=== PATIENT | male | born 1960 | race Caucasian/White ===

== ENCOUNTER 2022-03-15 08:02 | Emergency (ER) | payer SELFPAY ==
[2022-03-15 08:29] VITALS: BP 133/90; PULSE 86; RESP 18; TEMP 36.4; O2SAT 97; BMI 31.3
--- NOTE | 2022-03-15 08:51 | XR_ITS ---
Patient: EMMA MEJIA Facility:?[facility] Patient ID:?[id number] Site Patient ID:?[id number]. Site :?[id number] Study:?XRay-Knee Right 2 view-03/15/2022 9:10:56 AM Ordering Physician:Matt Rodrigues Final Report: INDICATION: Pain and swelling TECHNIQUE: Two-view right knee COMPARISON: None FINDINGS: Two views of the right knee reveal no fracture, malalignment/dislocation, acute osseous abnormality or joint effusion. There is narrowing of the medial compartment with osteophytic spurring noted along the articular surface of the patella. IMPRESSION: Degenerative changes without acute abnormality noted as discussed above. Dictated by Morgan Brady MD @ 03/15/2022 9:21:26 AM Signed by:?Morgan Brady MD @03/15/2022 9:21:26 AM (Electronic Signature)
--- NOTE | 2022-03-15 09:29 | ED_ITS ---
HPI - General Adult General Chief complaint: Extremity Pain/Injury, Lower Stated complaint: RT knee pain and swelling Time Seen by Provider: 03/15/22 08:17 Source: patient Mode of arrival: ambulatory Limitations: no limitations History of Present Illness HPI narrative: 61-year-old male coming in today complaining of knee pain. He states that he had a pimple over the anterior knee just below the patella that he popped a couple days ago and since then his knee has slowly been getting more painful. He denies any systemic symptoms such as fevers chills, nausea, or vomiting. He does not feel lightheaded or dizzy. walking Or moving the knee is painful lying still feels better. he denies pain in any other joint. Related Data Previous Rx's Medication Instructions Recorded cephalexin 500 mg capsule 500 mg PO QID 7 days #28 caps 03/15/22 Allergies Allergy/AdvReac Type Severity Reaction Status Date / Time No Known Drug Allergies Allergy Verified 03/15/22 08:33 Review of Systems Status of ROS: Reports: 10 or more systems reviewed and unremarkable except as noted in History and below [facility] Social History Smoking Status: Unknown if ever smoked Do you use any of these nicotine containing products: None How often do you have a drink containing alcohol: never AUDIT-C Alcohol total score: 0 Non-prescribed substance use: denies use Exam Narrative: Exam Narrative: Well-nourished well-developed patient in no acute distress. Alert and oriented. Answers questions appropriately. Mood and affect are appropriate. Thoughts are goal oriented and rational. No tangential or magical thinking noted. Patient speaks in full sentences without needing to catch their breath. Patient does not appear ill or toxic. HEENT: Normocephalic atraumatic. Pupils are equally round reactive to light. Extraocular muscles are intact. Conjunctivae are moist without any icterus noted. Extremities: Right knee is swollen and warm to touch. Posterior knee is normal, no heat or swelling noted there. Small scab just distal to the patella, healing appropriately. The knee is not red, just slightly pink. Skin: Otherwise Well perfused. Const: Vital Signs, click to edit/add: Vital Signs - 24 hr 03/15/22 08:29 Temperature 97.6 F Pulse Rate [Right Pulse Oximeter] 86 Respiratory Rate 18 Blood Pressure [Ri ght Upper Arm] 133/90 H Pulse Oximetry 97 Oxygen Delivery Me thod Room Air Course Course Hospital Course: certainly a concern for a septic joint versus cellulitis . Given the amount of swelling over the knee, difficult to ascertain whether this is a joint effusion verses subcutaneous swelling. We discussed risks and benefit of tapping the joint. We discussed the increased risk of infection and pain. Patient wished to proceed. Knee was cleaned in the usual sterile manner, lidocaine introduced into the skin and needle was easily placed inside the knee joint From a lateral approach. Unfortunately there was no fluid extracted. Given that we were unsuccessful in doing a joint aspiration we opted to proceed with a x-ray of the knee which did not show a joint effusion. Vital Signs Vital signs: Initial Vital Signs Temperature 97.6 F 03/15/22 08:29 Temperature Source Temporal Artery Scan 03/15/22 08:29 Pulse Rate 86 03/15/22 08:29 Respiratory Rate 18 03/15/22 08:29 Blood Pressure 133/90 H 03/15/22 08:29 Blood Pressure Mean 104 03/15/22 08:29 Blood Pressure Position Sitting 03/15/22 08:29 Pulse Oximetry 97 03/15/22 08:29 Oxygen Delivery Method 03/15/22 08:29 Vital Signs Temperature 97.6 F 03/15/22 08:29 Pulse Rate 86 03/15/22 08:29 Respiratory Rate 18 03/15/22 08:29 Blood Pressure 133/90 H 03/15/22 08:29 Pulse Oximetry 97 03/15/22 08:29 Oxygen Delivery Method 03/15/22 08:29 Temperature 97.6 F 03/15/22 08:29 Pulse Rate 86 03/15/22 08:29 Respiratory Rate 18 03/15/22 08:29 Blood Pressure 133/90 H 03/15/22 08:29 Pulse Oximetry 97 03/15/22 08:29 Oxygen Delivery Method 03/15/22 08:29 Medical Decision Making MDM Narrative Medical decision making narrative: knee pain and swelling without evidence of a joint effusion and no systemic symptoms- will treat as cellulitis. Patient will be placed on Keflex 4 times a day for the next week. If he develops systemic symptoms, knee pain becomes worse or more swollen despite antibiotic treatment patient is to return to the ER right away. Patient was understanding of these directions and had no other questions or concerns. Imaging Data Knee x-ray: Attestation: I have reviewed the pertinent imaging results. Radiologist's impression: TECHNIQUE: Two-view right knee COMPARISON: None FINDINGS: Two views of the right knee reveal no fracture, malalignment/dislocation, acute osseous abnormality or joint effusion. There is narrowing of the medial compartment with osteophytic spurring noted along the articular surface of the patella. IMPRESSION: Degenerative changes without acute abnormality noted as discussed above. Discharge Plan Discharge Clinical Impression: Cellulitis Patient Disposition: Home, Self-Care Condition: Stable Additional Instructions: Take all antibiotics as prescribed. If your knee continues to worsen despite 24-48 hours worth of antibiotics-return to the ER. Return to the ER if you develop fever or vomiting. activity as tolerated. Prescriptions: New cephalexin 500 mg capsule 500 mg PO QID 7 Days Qty: 28 0RF Follow Up/Referrals: Provider,Not a Local [Primary Care Provider] - Stand Alone Forms: [facility] Info Instructions
== END 2022-03-15 09:55 | disposition home or self-care (01) ==
PROVIDERS: Emergency Provider Family Medicine
DX: L03.115 Cellulitis of right lower limb (principal)
CPT/HCPCS: 73560; 99283; 99284

== ENCOUNTER 2024-10-20 05:38 | Emergency (ER) | payer OTHER, SELFPAY ==
[2024-10-20] VITALS (7 sets, daily range): BP systolic 135–154; BP diastolic 85–105; PULSE 79–85; RESP 16–18; TEMP 37; O2SAT 94–97; BMI 33.5
--- OUTSIDE RECORDS SUMMARY | 2024-10-20 05:41 | XMS_ITS | Encounter Summary ---
Author Organization [facility] Address [address] [address] Care Team Providers Care Adjunct Writing Instructor Name Role Phone Russ Suarez Primary Care Provider Unavailab le Encounter Details Date Type Department Care Team (Late st Contact Info) Description 06/27/2016 Consent for Procedure/Treatme nt [facility] INFORMED CONSENT RECORD Social History Tobacco Use Types Packs/Day Years Used Date Smoking Tobacco: Every Day Cigarettes 1 36 Alcohol Use Standard Drinks/Week Comments Yes 0 (1 standard drink = 0.6 oz pur e alcohol) rare Sex and Gender Information Value Date Recorded Sex Assigned at Not on file Legal Sex Male 6:00 AM CDT Gender Identity Not on file Sexual Orientation Not on file documented as of this encounter Plan of Treatment Not on file documented as of this encounter Visit Diagnoses Not on filedocumented in this encounter Care Teams Adjunct Writing Instructor Relationship Specialty Start Date End Date Russ Suarez PCP - General 09/29/10 documented as of this encounter
--- OUTSIDE RECORDS SUMMARY | 2024-10-20 05:41 | XMS_ITS | Clinical Summary ---
Author Organization [facility] Address [address] [place] [address] Care Team Providers Care Weblogic Administrator Name Role Phone Russ Suarez Primary Care Provider Unavailab le Source Comments You are receiving this document as you are listed as the primary care provider,follow-up provider, or the patient has been referred to you for consultation.This is in compliance with the Medicare and[facility] E[facility] Incentive [facility],which states Providers who transition their patient to another setting of careor provider of care or refers their patient to another provider of care shouldprovide summary care record for each transition of care or referral. [facility] Allergies No known active allergies Medications oxyCODONE (ROXICODONE) 5 MG immediate release tablet Take 1 Tablet by mouth every 6 hours as needed for Pain. 6 Tablet 01/13/2021 Active acetaminophen (TYLENOL) 325 MG tablet Take 2 Tablets by mouth every 4 hours as needed for Pain. 20 Tablet 01/13/2021 Active ibuprofen (MOTRIN) 400 MG tablet Take 1 Tablet by mouth every 6 hours as needed for Pain. 20 Tablet 01/13/2021 Active Active Problems No known active problems Immunizations Immunization Administration Dates Next Due Tdap 10/22/2020 Social History Tobacco Use Types Packs/Day Years Used Date Smoking Tobacco: Every Day Cigarettes 1 36 Alcohol Use Standard Drinks/Week Comments Yes 0 (1 standard drink = 0.6 oz pur e alcohol) rare Sex and Gender Information Value Date Recorded Sex Assigned at Not on file Legal Sex Male 6:00 AM CDT Gender Identity Not on file Sexual Orientation Not on file Last Filed Vital Signs Vital Sign Reading Time Taken Comments Blood Pressure 141/97 01/13/2021 10:30 AM CDT Pulse 85 01/13/2021 10:30 AM CDT Temperature 36.6 C (97.8 F) 01/13/2021 10:30 AM CDT Respiratory Rate 16 01/13/2021 10:30 AM CDT Oxygen Saturation 99% 01/13/2021 10:30 AM CDT Inhaled Oxygen Concentration - - Weight 90.7 kg (200 lb) 06/27/2016 8:36 AM COACH WIRER Height 170.2 cm (5' 7) 06/27/2016 8:36 AM COACH WIRER Body Mass Index 31.32 06/27/2016 8:36 AM COACH WIRER Plan of Treatment Health Maintenance Due Date Last Done Comments Colon Cancer Screening Plan Due 1960 Hep C Screening (Preventive Services) 1960 PSA Screening Discussion 1960 HIV Screening (Preventive Services) 1978 Adult Preventive Visit 1980 Cholesterol 1997 Pneumococcal Vaccine 50+ Yrs (1 of 1 - PCV) 2012 Zoster/Shingles Vaccine (1 o f 2) 2012 COVID-19 Vaccine (1 - 2023-2 5 season) 2024 Influenza Vaccine (#1) 2024 DTaP/Tdap/Td Vaccine (2 - Tdap) 10/22/2030 10/22/2020, 08/18/2002 RSV Vaccine (1 - 1-dose 75+ series) 2037 HepA Vaccine Aged Out No longer eligi ble based on patient's age to complete this topic HepB Vaccine Aged Out No longer eligi ble based on patient's age to complete this topic Hib Vaccine Aged Out No longer eligi ble based on patient's age to complete this topic IPV (Polio) Vaccine Aged Out No longe r eligible based on patient's age to complete this topic MCV4 Vaccine Aged Out No longer eligi ble based on patient's age to complete this topic Meningococcal B Vaccine Aged Out No l onger eligible based on patient's age to complete this topic Care Teams Weblogic Administrator Relationship Specialty Start Date End Date Russ Suarez PCP - General 09/29/10
--- NOTE | 2024-10-20 05:48 | ED.ABDPAIN ---
HPI - Abdominal Pain General Date Seen: 10/20/24 Chief Complaint: Abdominal Pain Stated Complaint: severe abdominal pain Time Seen by Provider: 10/20/24 05:41 Source: patient, family, RN notes reviewed and old records reviewed Mode of arrival: ambulatory Limitations: no limitations History of Present Illness HPI narrative: Russ is a very pleasant 64-year-old male with history of testicular torsion, status post surgery who comes to the emergency room for abdominal pain. Russ experienced the onset of low abdominal pain in the afternoon hours yesterday. Thought he would be able to sleep overnight but has not been able to do so. He now comes in with increasing abdominal pain that radiates into the text occult and into his back. It is not associated with any fever. He notes that he feels like he is not peeing as well as normal. He has not had any diarrhea constipation or blood in his stool. He has not had this type of discomfort in the past. In regard to his history of testicular torsion, states he did have surgery. This happened on the right side but his states they actually operated on both sides. He notes that the pain he is feeling radiating into his testicle has not been present since the onset of his abdominal pain but now that his pain is worsening he thinks that is where it is coming from as the pain is different from what he normally feels if he is experiencing torsion. His feels that this may be kidney stones although he has not had a history of that. He does agree that it does hurt to urinate. Related Data Home Medications ?Medication ?Instructions ?Recorded ?Confirmed No Known Home Medications 10/20/24 10/20/24 Allergies Allergy/AdvReac Type Severity Reaction Status Date / Time No Known Drug Allergies Allergy Verified 10/20/24 05:46 Review of Systems Status of ROS Reports: 6 or more systems reviewed and unremarkable except as noted in History and below [facility] Social History Smoking Status: Current every day smoker Do you use any of these nicotine containing products: None Second hand tobacco smoke exposure: Yes How often do you have a drink containing alcohol: never AUDIT-C Alcohol total score: 0 Non-prescribed substance use: denies use Exam Narrative: Exam Narrative: Alert and oriented. Obviously in discomfort. Mentating normally. External ears eyes nose clear. Heart with a regular rate and rhythm and lungs are clear. Abdomen is with tenderness in the lower quadrant with up firmness to palpation. No pulsating mass. Left lower quadrant exquisitely tender to any sort of pressure. No masses are palpated Examination testicles show no evidence of unusual swelling or erythema. Palpation of the right testicle without discomfort. Slight discomfort of palpation of the left testicle the testicle appears to be descended and re-examination of the abdomen shows exquisite tenderness now in the left lower quadrant. Const: Vital Signs, click to edit/add: Vital Signs - 24 hr 10/20/24 05:44 10/20/24 05:55 10/20/24 05:56 Temperature 98.6 F Pulse Rate 85 Pulse Rate [Right Pulse Oximeter] 82 Respiratory Rate 16 18 Blood Pressure 154/105 H Blood Pressure [Le ft Upper Arm] 144/103 H Pulse Oximetry 97 97 97 Oxygen Delivery Me thod Room Air 10/20/24 06:02 10/20/24 06:17 10/20/24 06:59 Temperature 98.6 F Pulse Rate 82 83 Pulse Rate [Right Pulse Oximeter] 79 Respiratory Rate 18 18 18 Blood Pressure 143/98 H 150/94 H Blood Pressure [Le ft Upper Arm] 135/85 Pulse Oximetry 94 94 94 Oxygen Delivery Me thod Room Air 10/20/24 06:59 10/20/24 07:00 Temperature 98.6 F 98.6 F Pulse Rate Pulse Rate [Right Pulse Oximeter] 79 Respiratory Rate 18 Blood Pressure Blood Pressure [Le ft Upper Arm] 135/85 Pulse Oximetry Oxygen Delivery Me thod Documenting provider has reviewed patient's vital signs: yes Course Course ED Course: differential diagnosis includes but is not limited to diverticulitis, UTI, bowel obstruction. Will order morphine 4 mg, Toradol 15 mg and Zofran 4 mg. At this time given the exam and history of previous testicular tacking surgery do not think we are dealing with a testicular torsion. However, have ordered both CT of the abdomen and ultrasound of the scrotum. Russ and his agree and feel that his symptoms are from the abdomen and not from his testicles. I do explain that we are at risk of missing a torsion but with history of previous urological surgery to prevent torsion this is unlikely. Reevaluation(s) Reevaluation #1: Patient feeling improved after morphine, Toradol and Zofran. Vital Signs Vital signs: Initial Vital Signs Temperature 98.6 F 10/20/24 05:44 Temperature Source Temporal Artery Scan 10/20/24 05:44 Pulse Rate 82 10/20/24 05:44 Respiratory Rate 16 10/20/24 05:44 Blood Pressure 144/103 H 10/20/24 05:44 Blood Pressure Mean 116 H 10/20/24 05:44 Pulse Oximetry 97 10/20/24 05:44 Oxygen Delivery Method Room Air 10/20/24 05:44 Vital Signs Temperature 98.6 F 10/20/24 05:44 Pulse Rate 82 10/20/24 05:44 Respiratory Rate 16 10/20/24 05:44 Blood Pressure 144/103 H 10/20/24 05:44 Pulse Oximetry 97 10/20/24 05:44 Oxygen Delivery Method Room Air 10/20/24 05:44 Temperature 98.6 F 10/20/24 07:00 Pulse Rate 79 10/20/24 06:59 Respiratory Rate 18 10/20/24 06:59 Blood Pressure 135/85 10/20/24 06:59 Pulse Oximetry 94 10/20/24 06:59 Oxygen Delivery Method Room Air 10/20/24 06:59 Medications Administered Medications: Discontinued Medications Generic Name Dose Route Start Last Admin Trade Name Freq PRN Reason Stop Dose Admin Sodium Chloride 1,000 mls @ 1,000 mls/hr 10/20/24 06:22 10/20/24 07:01 0.9 % Sodium Chloride 1000 Ml IV 10/20/24 07:21 Infused .Q1H FRANK Infusion Ketorolac Tromethamine 15 mg 10/20/24 05:48 10/20/24 05:53 Ketorolac 15 Mg/Ml Inj IVP 10/20/24 05:49 15 mg ONCE ONE Administration Morphine Sulfate 4 mg 10/20/24 05:48 10/20/24 05:53 Morphine 4 Mg/Ml Inj IVP 10/20/24 05:49 4 mg ONCE ONE Administration Ondansetron HCl 4 mg 10/20/24 05:48 10/20/24 05:53 Ondansetron 2 Mg/Ml Inj IVP 10/20/24 05:49 4 mg ONCE ONE Administration MDM - Abdominal Pain MDM Narrative Medical decision making narrative: 1. Diverticulitis-patient is able to take oral meds, has not been vomiting. He is afebrile with normal pulse and blood pressure. White count elevated at [address] does show a non perforated area of diverticulitis. No evidence of abscess. Will treat with Augmentin 875 p.o. b.i.d. x7 days. This is the our [employer] meds machine. For pain he may use ibuprofen 600 mg every 8 hours. For pain not relieved by ibuprofen we have provided him with Barnsdall 5/325 1-2 tabs q.4-6 hours p.r.n. pain 20. Via instant meds machine. Denies history of addiction. Did warn against using with any other sedating medications as well as risk of constipation. May want to use stool softener if using this pain medicine. 2. Testicular pain-ultrasound without evidence of torsion. 3. Right inguinal hernia-no evidence of incarceration at this time. Recommend against heavy lifting or straining. For recommend follow-up with surgeon for evaluation. 4. Pulmonary nodule-measuring 5 mm. Given history of smoking and does have risk criteria and therefore recommend follow-up CT in 12 months suggestion for tobacco abstinence made in the ED. 5. Disposition-home at this time. Return for worsening symptoms and as needed. Medical Records Attestation: I reviewed the patient's medical records. Lab Data Attestation: I reviewed the patient's lab results. Labs: Lab Results 10/20/24 10/20/24 Range/Units 05:49 06:00 WBC 16.13 H (4.50-11.00) K/uL RBC 4.90 (4.30-5.90) m/uL Hgb 14.9 (13.5-17.5) gm/dL Hct 44.1 (37.0-53.0) % MCV 90 (80-100) fL MCH 30 (26-34) pg MCHC 34 (32-36) gm/dL RDW Coeff of Max 13.0 (11.5-15.5) % Plt Count 314 (140-440) K/uL Neut % (Auto) 85.5 H (42.0-72.0) % Lymph % (Auto) 7.1 L (20-44) % Appling % (Auto) 6.4 (0.0-11.0) % Eos % (Auto) 0.6 (0.0-7.0) % Baso % (Auto) 0.2 (0.0-3.0) % Neut # (Auto) 13.80 H (1.7-7.0) K/uL Lymph # (Auto) 1.10 (0.90-2.90) K/uL Appling # (Auto) 1.00 H (0.00-0.90) K/UL Eos # (Auto) 0.10 (0.00-0.50) K/uL Baso # (Auto) 0.00 (0.00-0.30) K/uL Abs Immat Gran (auto) 0.00 (0.00-0.30) K/uL Imm/Tot Granulo (auto) 0.2 % Sodium 135 (135-149) mmol/L Potassium 4.2 (3.6-5.1) mmol/L Chloride 103 (96-114) mmol/L Carbon Dioxide 22 (20-32) mmol/L Anion Gap 10 (7-15) mEq/L BUN 21 (7-30) mg/dL Creatinine 1.0 (0.5-1.5) mg/dL Estimated Creat Clear 74.10 Estimated GFR 85 ml/min Glucose 130 H (60-115) mg/dL Calcium 9.4 (8.4-10.6) mg/dL C-Reactive Protein 3.4 H (0.5-1.0) mg/dL POC Creatinine 1.0 (0.6-1.3) mg/dl Imaging Data CT scan - abdomen: Attestation: I have reviewed the pertinent imaging results. Radiologist's impression: Liver: Normal contour and attenuation. No significant focal lesion. No intrahepatic biliary ductal dilatation. Patent portal veins. Patent hepatic veins. Gallbladder: Normal size. No pericholecystic inflammatory changes. Normal common duct caliber. Pancreas: Normal contour and attenuation. No peripancreatic inflammatory changes. No significant focal lesion. Normal main duct caliber. Spleen: Not enlarged. No significant focal lesion. Patent splenic artery and vein. Adrenal Glands: Symmetrical adrenal glands. No significant focal lesion. Kidneys: Normal bilateral renal attenuation. No significant focal lesion. Uncomplicated right renal cortical cysts are noted incidentally. No nephrolith. No dilatation of the intrarenal collecting systems. No ureteral stone. Nondilated ureters. Patent renal arteries and veins. Gastrointestinal tract: Findings of acute sigmoid diverticulitis are noted including short segmental wall thickening of the sigmoid colon with pronounced pericolic inflammatory fat stranding, including infiltration of the sigmoid mesocolic fat and thickening of the umbilicovesicle fascia and combined interfascial plane of the left iliac fossa. Normal appendix. Vascular: Chronic mild aortoiliac atherosclerotic mural calcification. Abdominal aorta and its major proximal branches including the celiac, superior mesenteric, inferior mesenteric, renal, and bilateral common iliac arteries are patent. Patent superior mesenteric vein. Peritoneal Cavity/Retroperitoneum: No ascites. No adenopathy. PELVIS Perivesical fat stranding is associated with the findings of acute uncomplicated sigmoid diverticulitis described above. No significant incidental findings related to the prostate or seminal vesicles. Small volume rectovesical pelvic free fluid. No adenopathy. SKELETON AND BODY WALL Indirect fat and fluid containing right inguinal hernia. Left inguinal canal lipoma/extrusion of extraperitoneal fat. Punctate calcifications in the left scrotum consistent with scrotal pearls. Suspected left varicocele. LOWER THORAX Incidental 5 mm (mean diameter) juxtapleural solid noncalcified right middle lobe nodule (series 3; image 3). No routine imaging surveillance is indicated for such findings in the absence of an established history of malignancy and without clinical risk factors for lung cancer such as a smoking history. If the latter Fleischner Society guidelines suggest an optional 12 month follow-up chest CT which is recommended. Partially included lower thoracic wall, lungs, pleural spaces and mediastinum are otherwise without significant incidental findings. IMPRESSION: 1. Acute sigmoid diverticulitis without evidence of perforation or abscess. Please see description above. Associated small volume rectovesical free pelvic fluid. Free fluid also extends into an indirect right inguinal hernia. 2. Incidental findings as above including a 5 mm right middle lobe nodule for which no routine imaging surveillance is indicated in the absence of an established history of malignancy and without risk factors for lung cancer. Please see the management recommendations in the clinical setting of positive risk factors for lung cancer as detailed in the body of the report. Scrotal ultrasound: Attestation: I have reviewed the pertinent imaging results. Radiologist's impression: The testes are normal in size and echogenicity without focal mass. The right testis measures 5.1 x 2.2 x 3.4 centimeters and the left testis measures 4.2 x 1.6 x 2.2 centimeters. Normal scrotal skin thickness. No hydrocele. No varicocele. Epididymis as visualized appear normal. Normal testicular blood flow bilaterally without evidence of hyperemia or torsion. Impression: Normal examination. No hyperemia to suggest an acute inflammatory process and no evidence of torsion. Discharge Plan Discharge Clinical Impression: Diverticulitis Patient Disposition: Home, Self-Care Condition: Improved Additional Instructions: Start Augmentin and take every 12 hours for the next 7 days. I did put this in our [email or web address] machine. You will need to follow-up with your primary MD in the next 10-14 days to ensure resolution of your symptoms and to have a colonoscopy scheduled after this area of infection has healed to ensure there are no other abnormalities. This is very important that you have a follow-up colonoscopy. Your primary physician can arrange that for you. For pain control, you may use ibuprofen 600 mg every 8 hours. For increasing pain you may use Barnsdall also known as hydrocodone and Tylenol as needed for discomfort. This is a narcotic and you should not be using any other sedating medications with it nor you should you be driving. It does have a tendency to cause constipation so if you need to use the Barnsdall please also start a stool softener. You do have a pulmonary nodule measuring 5 mm or half a cm. Because of your tobacco use, you will need to have a repeat CT in 12 months to make sure that this has not changed. Please follow-up with your primary MD to have this arranged. Return to the emergency room for vomiting, worsening symptoms and as needed. Prescriptions: No Action No Known Home Medications Follow Up/Referrals: Provider,Not a Local [Primary Care Provider] - Stand Alone Forms: [facility] Info Instructions
[2024-10-20] MEDS: MORPHINE 4 MG/ML INJ IVP (05:53)
[2024-10-20] MEDS: KETOROLAC 15 MG/ML inj IVP (05:53)
[2024-10-20] MEDS: ONDANSETRON 2 MG/ML inj 4 MG IVP (05:53)
--- NOTE | 2024-10-20 05:56 | CRLHL7_ITS ---
For Patients: As a result of the Century Cures Act, medical imaging exams and procedure reports are released immediately into your electronic medical record. You may view this report before your referring provider. If you have questions, please contact your health care provider. Indication: Testicular pain. History of prior torsion and repair. Technique: Sonography of the scrotum and its contents was performed. Imaging was performed by grayscale. Color Doppler and spectral Doppler was also provided to assess for testicular blood flow. Comparison: None Findings: The testes are normal in size and echogenicity without focal mass. The right testis measures 5.1 x 2.2 x 3.4 centimeters and the left testis measures 4.2 x 1.6 x 2.2 centimeters. Normal scrotal skin thickness. No hydrocele. No varicocele. Epididymis as visualized appear normal. Normal testicular blood flow bilaterally without evidence of hyperemia or torsion. Impression: Normal examination. No hyperemia to suggest an acute inflammatory process and no evidence of torsion. Dictated by Flynn Armijo MD @ 10/20/2024 7:04:57 AM (Electronically Signed)
--- NOTE | 2024-10-20 05:57 | CRLHL7_ITS ---
For Patients: As a result of the 21st Century Cures Act, medical imaging exams and procedure reports are released immediately into your electronic medical record. You may view this report before your referring provider. If you have questions, please contact your health care provider. INDICATION: Lower abdominal pain. COMPARISON: None available. TECHNIQUE: CT of the abdomen and pelvis with 98 cc of Isovue 370 intravenous contrast. Please note that all CT scans at this facility use dose modulation, iterative reconstruction, and/or weight-based dosing when appropriate to reduce radiation dose to as low as reasonably achievable. FINDINGS: ABDOMEN Liver: Normal contour and attenuation. No significant focal lesion. No intrahepatic biliary ductal dilatation. Patent portal veins. Patent hepatic veins. Gallbladder: Normal size. No pericholecystic inflammatory changes. Normal common duct caliber. Pancreas: Normal contour and attenuation. No peripancreatic inflammatory changes. No significant focal lesion. Normal main duct caliber. Spleen: Not enlarged. No significant focal lesion. Patent splenic artery and vein. Adrenal Glands: Symmetrical adrenal glands. No significant focal lesion. Kidneys: Normal bilateral renal attenuation. No significant focal lesion. Uncomplicated right renal cortical cysts are noted incidentally. No nephrolith. No dilatation of the intrarenal collecting systems. No ureteral stone. Nondilated ureters. Patent renal arteries and veins. Gastrointestinal tract: Findings of acute sigmoid diverticulitis are noted including short segmental wall thickening of the sigmoid colon with pronounced pericolic inflammatory fat stranding, including infiltration of the sigmoid mesocolic fat and thickening of the umbilicovesicle fascia and combined interfascial plane of the left iliac fossa. Normal appendix. Vascular: Chronic mild aortoiliac atherosclerotic mural calcification. Abdominal aorta and its major proximal branches including the celiac, superior mesenteric, inferior mesenteric, renal, and bilateral common iliac arteries are patent. Patent superior mesenteric vein. Peritoneal Cavity/Retroperitoneum: No ascites. No adenopathy. PELVIS Perivesical fat stranding is associated with the findings of acute uncomplicated sigmoid diverticulitis described above. No significant incidental findings related to the prostate or seminal vesicles. Small volume rectovesical pelvic free fluid. No adenopathy. SKELETON AND BODY WALL Indirect fat and fluid containing right inguinal hernia. Left inguinal canal lipoma/extrusion of extraperitoneal fat. Punctate calcifications in the left scrotum consistent with scrotal pearls. Suspected left varicocele. LOWER THORAX Incidental 5 mm (mean diameter) juxtapleural solid noncalcified right middle lobe nodule (series 3; image 3). No routine imaging surveillance is indicated for such findings in the absence of an established history of malignancy and without clinical risk factors for lung cancer such as a smoking history. If the latter Fleischner Society guidelines suggest an optional 12 month follow-up chest CT which is recommended. Partially included lower thoracic wall, lungs, pleural spaces and mediastinum are otherwise without significant incidental findings. IMPRESSION: 1. Acute sigmoid diverticulitis without evidence of perforation or abscess. Please see description above. Associated small volume rectovesical free pelvic fluid. Free fluid also extends into an indirect right inguinal hernia. 2. Incidental findings as above including a 5 mm right middle lobe nodule for which no routine imaging surveillance is indicated in the absence of an established history of malignancy and without risk factors for lung cancer. Please see the management recommendations in the clinical setting of positive risk factors for lung cancer as detailed in the body of the report. Please note that all CT scans at this facility use dose modulation, iterative reconstruction, and/or weight-based dosing when appropriate to reduce radiation dose to as low as reasonably achievable. Dictated by Ariel Luque MD @ 10/20/2024 6:30:34 AM (Electronically Signed)
[2024-10-20 06:00] LABS: Basophils Percent Auto 0.2 % (0.0-3.0); Eosinophils Percent Auto 0.6 % (0.0-7.0); Hematocrit 44.1 % (37.0-53.0); Hemoglobin* 14.9 gm/dL (13.5-17.5); Immature Granulocytes Pct Auto 0.2 %; Lymphocytes Percent Auto 7.1 % (20-44); Mean Corpuscular HGB Conc 34 gm/dL (32-36); Mean Corpuscular Hemoglobin 30 pg (26-34); Mean Corpuscular Volume 90 fL (80-100); Monocytes Percent Auto 6.4 % (0.0-11.0); Neutrophils Percent Auto 85.5 % (42.0-72.0); Platelet Count* 314 K/uL (140-440); White Blood Count* 16.13 K/uL (4.50-11.00)
--- OUTSIDE RECORDS SUMMARY | 2024-10-20 06:08 | XMS_ITS | Clinical Summary ---
Author Organization [facility] Address [address] [place] [address] Care Team Providers Care Graining Machine Operator Name Role Phone Russ Suarez Primary Care Provider Unavailab le Source Comments You are receiving this document as you are listed as the primary care provider,follow-up provider, or the patient has been referred to you for consultation.This is in compliance with the Medicare and[facility] E[facility] Incentive Program,which states Providers who transition [...] 90.7 kg (200 lb) 06/27/2016 8:36 AM VENEER PATCHER Height 170.2 cm (5' 7) 06/27/2016 8:36 AM VENEER PATCHER Body Mass Index 31.32 06/27/2016 8:36 AM VENEER PATCHER Plan of Treatment Health Maintenance Due Date [...] age to complete this topic Care Teams Graining Machine Operator Relationship Specialty Start Date End Date Russ Suarez PCP - General 09/29/10
--- OUTSIDE RECORDS SUMMARY | 2024-10-20 06:08 | XMS_ITS | Encounter Summary ---
[facility] Organization [facility] Address [address] [address] Care Team Providers Care Wheel Cutter Name Role Phone Russ Suarez Primary Care [...] on filedocumented in this encounter Care Teams Wheel Cutter Relationship Specialty Start Date End Date Russ Suarez PCP - General 09/29/10 documented as of this encounter
[2024-10-20 06:12] LABS: Chloride* 103 mmol/L (96-114); Potassium* 4.2 mmol/L (3.6-5.1); Sodium* 135 mmol/L (135-149)
[2024-10-20 06:16] LABS: Anion Gap 10 mEq/L (7-15); Blood Urea Nitrogen* 21 mg/dL (7-30); Calcium* 9.4 mg/dL (8.4-10.6); Carbon Dioxide* 22 mmol/L (20-32); Estimated Glomerular Filt Rate 85 ml/min; Glucose* 130 mg/dL (60-115)
[2024-10-20 06:18] LABS: C Reactive Protein* 3.4 mg/dL (0.5-1.0)
[2024-10-20] MEDS: 0.9 % SODIUM CHLORIDE 1000 ml 1,000 ML IV (06:31)
[2024-10-20 06:36] LABS: Slide Review Reflex No
== END 2024-10-20 06:59 | disposition home or self-care (01) ==
PROVIDERS: Emergency Provider Family Medicine
DX: K57.30 Diverticulosis of large intestine without perforation or abscess without bleeding (principal)
CPT/HCPCS: 36415; 51798; 74177; 76870; 80048; 81001; 82565; 85025; 86140; 93976; 94761; 96374; 96375; 99284; 99285; J1885; J2270; J2405; J7030; Q9967

== ENCOUNTER 2025-01-25 12:27 | Emergency (ER) | payer OTHER, SELFPAY ==
[2025-01-25] VITALS (11 sets, daily range): BP systolic 145–162; BP diastolic 93–103; PULSE 62–84; RESP 20; TEMP 36.6; O2SAT 95–100; BMI 31.0
--- OUTSIDE RECORDS SUMMARY | 2025-01-25 12:29 | XMS_ITS | Encounter Summary ---
Author Organization [facility] Address [address] [address] Care Team Providers Care Card Hand Name Role Phone Russ Suarez Primary Care [...] on filedocumented in this encounter Care Teams Card Hand Relationship Specialty Start Date End Date Russ Suarez PCP - General 09/29/10 documented as of this encounter
--- OUTSIDE RECORDS SUMMARY | 2025-01-25 12:29 | XMS_ITS | Clinical Summary ---
Author Organization [facility] Address [address] [place] [address] Care Team Providers Care Track Announcer Name Role Phone Russ Suarez Primary Care Provider Unavailab le Source Comments You are receiving this document as you are listed as the primary care provider,follow-up provider, or the patient has been referred to you for consultation.This is in compliance with the Medicare and[facility] E[facility] Incentive Program,which states Providers who transition [...] 90.7 kg (200 lb) 06/27/2016 8:36 AM SOFTWARE TEST DEVELOPER Height 170.2 cm (5' 7) 06/27/2016 8:36 AM SOFTWARE TEST DEVELOPER Body Mass Index 31.32 06/27/2016 8:36 AM SOFTWARE TEST DEVELOPER Plan of Treatment Health Maintenance Due Date [...] 2023-2 5 season) 2024 Influenza Vaccine (#1) 2025 DTaP/Tdap/Td Vaccine (2 - Tdap) 10/22/2030 10/22/2020, [...] age to complete this topic Care Teams Track Announcer Relationship Specialty Start Date End Date Russ Suarez PCP - General 09/29/10
--- NOTE | 2025-01-25 13:33 | ED.GENADULT ---
[facility] - General Adult General Date Seen: 01/25/25 Chief complaint: Extremity Pain/Injury, Upper Stated complaint: R arm numb Time Seen by Provider: 01/25/25 12:38 Source: patient Mode of arrival: ambulatory Limitations: no limitations History of Present Illness HPI narrative: Patient is a 64-year-old male presenting for right upper arm pain. He states the past 2 weeks to live intermittent episodes where his rate upper biceps is painful in due that he cannot bend his arm. States to the past few days is been more persistent and now sometimes is so painful that he will need to use his left arm to move his right arm. Will occasionally get paresthesias in his right hand and has recently had a couple paresthesias in his left hand. Does not have any paresthesia at this time. Denies symptoms like this before. Denies fevers, chest pain, shortness of breath, abdominal pain, headache, lightheadedness, dizziness. Denies symptoms like this before. Does not remember injuring his arm. 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 Related Data Home Medications ?Medication ?Instructions ?Recorded ?Confirmed No Known Home Medications 10/20/24 01/25/25 Allergies Allergy/AdvReac Type Severity Reaction Status Date / Time No Known Drug Allergies Allergy Verified 01/25/25 12:40 Review of Systems Narrative: Pertinent systems reviewed and were negative unless stated in [facility] PFS PFS Social History Smoking Status: Current every day smoker Do you use any of these nicotine containing products: None Second hand tobacco smoke exposure: Yes How often do you have a drink containing alcohol: never AUDIT-C Alcohol total score: 0 Non-prescribed substance use: denies use Exam Narrative: Exam Narrative: Const: Well-nourished, Well-developed, in no distress Eyes: PERRL, no conjunctival injection, and symmetrical lids HENT: Atraumatic external nose and ears. Moist mucous membranes. MSK:Extremities w/o deformity, Normal Active ROM, tenderness noted over the upper biceps over roughly the short head of the biceps Skin: Warm, Dry. No rashes or lesions. Neuro: Normal Muscle tone, No focal neurological deficits. Psych: Awake, Alert, & Oriented x3. Appropriate mood and affect. Const: Vital Signs, click to edit/add: Vital Signs - 24 hr 01/25/25 12:35 01/25/25 12:40 Temperature 97.9 F Pulse Rate 80 Pulse Rate [Pulse Oximeter] 84 Respiratory Rate 20 Blood Pressure [Le ft Upper Arm] 146/103 H Pulse Oximetry 98 97 Oxygen Delivery Me thod Room Air Course Vital Signs Vital signs: Initial Vital Signs Temperature 97.9 F 01/25/25 12:35 Temperature Source Temporal Artery Scan 01/25/25 12:35 Pulse Rate 84 01/25/25 12:35 Respiratory Rate 20 01/25/25 12:35 Blood Pressure 146/103 H 01/25/25 12:35 Blood Pressure Mean 117 H 01/25/25 12:35 Pulse Oximetry 98 01/25/25 12:35 Oxygen Delivery Method Room Air 01/25/25 12:35 Vital Signs Temperature 97.9 F 01/25/25 12:35 Pulse Rate 84 01/25/25 12:35 Respiratory Rate 20 01/25/25 12:35 Blood Pressure 146/103 H 01/25/25 12:35 Pulse Oximetry 98 01/25/25 12:35 Oxygen Delivery Method Room Air 01/25/25 12:35 Temperature 97.9 F 01/25/25 12:35 Pulse Rate 80 01/25/25 12:40 Respiratory Rate 20 01/25/25 12:35 Blood Pressure 146/103 H 01/25/25 12:35 Pulse Oximetry 97 01/25/25 12:40 Oxygen Delivery Method Room Air 01/25/25 12:35 Medical Decision Making MDM Narrative Medical decision making narrative: Patient is a 64-year-old male presenting for right bicep pain. His description of than paresthesias and weakness of the arm does not sound like a stroke. This does sound like biceps tendonitis. Unsure why it is causing intermittent paresthesias but the rest of his month the strength in his right arm is normal other than flexion of the elbow. We does try and flex the elbow against my resistance he is having pain. No pain with any other movement. He has been taking Tylenol at home and occasionally Aleve. I will discharge him home with prednisone via instymeds and will have take ibuprofen regularly for the next few days along with starting to ice the area. He is agreeable to this plan. Do not believe imaging is necessary. Discharge Plan Discharge Clinical Impression: Biceps femoris tendinitis Patient Disposition: Home, Self-Care Condition: Stable Instructions: Tendinitis (ED) Additional Instructions: I believe your symptoms are all from tendinitis of your biceps. Recommend taking ibuprofen every 4-6 hours as needed for pain the next few days along with taking the steroids as prescribed. Ice the area for 20 minutes 3 times a day. If symptoms are not getting better into next week I recommend following up with [facility]. Call them at Prescriptions: No Action No Known Home Medications Follow Up/Referrals: Provider,Not a Local [Primary Care Provider, Family Practice] Stand Alone Forms: [employer] Info Instructions
== END 2025-01-25 13:49 | disposition home or self-care (01) ==
LOC: ED 13:44
PROVIDERS: Emergency Provider Student in an Organized Health Care Education/Training Program
DX: M75.21 Bicipital tendinitis, right shoulder (principal)
CPT/HCPCS: 99283

== ENCOUNTER 2025-02-04 00:46 | Emergency (ER) | payer OTHER, SELFPAY ==
--- NOTE | 2025-02-04 | CT_ITS ---
Patient: EMMA MEJIA Facility:?[facility] Patient ID:?[id number] Site Patient ID:?[id number]. Site :?[id number] Study:?CT-Spine Lumbar W/O-02/04/2025 2:15:14 AM Ordering Physician:? Final Report: INDICATION: Low back pain. TECHNIQUE: CT lumbar spine without contrast. COMPARISON: CT abdomen pelvis 10/20/2024. FINDINGS: No acute fracture or suspicious osseous lesion. There is mild lumbar levocurvature. The lumbar vertebral bodies maintain their normal heights with slight straightening of the lumbar lordosis. Mild retrolisthesis is present at L3-L4 and L5-S1. There is multilevel spondylosis with endplate osteophyte formation. Multilevel degenerative disc disease with prominent Schmorl`s nodes across L2-L3 and multilevel disc space height loss moderate to advanced at L5- S1. Please refer to separately dictated CT of the abdomen/pelvis for discussion of intra-abdominal/pelvic contents. Paraspinal soft tissues are grossly within normal limits. There are degenerative changes at the bilateral sacroiliac joints. Level by level assessment: T11-T12: No significant canal or foraminal stenosis. T12-L1: Mild facet arthropathy. No significant canal or foraminal stenosis. L1-L2: Disc bulge. Mild facet arthropathy. Mild canal narrowing and mild bilateral foraminal narrowing. L2-L3: Disc bulge. Mild facet arthropathy. Gdwi-zv-uduretgi canal narrowing. No significant foraminal narrowing. L3-L4: Disc bulge. Gnmg-nu-fzylkgtr facet arthropathy. Moderate canal narrowing. Mild bilateral foraminal narrowing. L4-L5: Disc bulge. Moderate facet arthropathy. Advanced canal stenosis. Moderate bilateral foraminal stenosis. L5-S1: Disc bulge. Moderate facet arthropathy. No significant canal narrowing. Moderate bilateral foraminal narrowing. IMPRESSION: 1. No acute osseous abnormality. 2. Multilevel spondylosis and degenerative disc disease with moderate to advanced disc space height loss at L5-S1. 3. Multifocal canal stenosis, advanced at L4-L5, as above. 4. Multilevel foraminal narrowing, moderate bilaterally at L4-L5 and L5-S1, as above. Please note that all CT scans at this facility use dose modulation, iterative reconstruction, and/or weight-based dosing when appropriate to reduce radiation dose to as low as reasonably achievable. Dictated by Dong Crews MD @ 02/04/2025 2:27:06 AM Signed by:?Dong Crews MD @02/04/2025 2:27:06 AM (Electronic Signature)
--- NOTE | 2025-02-04 | CT_ITS ---
Patient: EMMA MEJIA Facility:?[facility] Patient ID:?[id number] Site Patient ID:?[id number]. Site :?[id number] Study:?CT-Abdomen/Pelvis W/ISOVUE 370 98CC-02/04/2025 2:12:52 AM Ordering Physician:? Final Report: INDICATION: Low back pain. Known hernia. TECHNIQUE: CT abdomen and pelvis acquired with 98 cc Isovue 370 IV contrast. COMPARISON: CT abdomen pelvis 10/20/2024. FINDINGS: Lower chest: Right middle lobe pulmonary nodule measuring 5 mm (series 3, image 5), unchanged. Bibasilar atelectasis. Liver: Few scattered subcentimeter hypodensities are too small to characterize on this exam but likely represent small cysts and are grossly unchanged compared to prior. Gallbladder and bile ducts: Unremarkable. Pancreas: Unremarkable. Spleen: Unremarkable. Adrenal glands: Unremarkable. Kidneys: Symmetric renal enhancement. Right renal cyst. No hydronephrosis or hydroureter. No obstructing calculi. GI tract: No bowel obstruction. Colonic diverticulosis without acute diverticulitis. Normal appendix. Vasculature: Atherosclerotic calcifications. No abdominal aortic aneurysm. Grossly patent vasculature. Lymph nodes: No suspicious lymphadenopathy. Peritoneum/Abdominal Wall: Fat containing right inguinal hernia. No ascites or pneumoperitoneum. No acute abdominal wall abnormality. Pelvis: Mild circumferential bladder wall thickening. Bones: No acute abnormality. IMPRESSION: 1. Mild circumferential bladder wall thickening. Correlate for cystitis. 2. Colonic diverticulosis without acute diverticulitis. 3. Redemonstrated right middle lobe pulmonary nodule measuring 5 mm. Optional follow-up CT chest in 12 months can be considered as clinically warranted. Please note that all CT scans at this facility use dose modulation, iterative reconstruction, and/or weight-based dosing when appropriate to reduce radiation dose to as low as reasonably achievable. Dictated by Dong Crews MD @ 02/04/2025 2:21:06 AM Signed by:?Dong Crews MD @02/04/2025 2:21:06 AM (Electronic Signature)
--- OUTSIDE RECORDS SUMMARY | 2025-02-04 00:49 | XMS_ITS | Clinical Summary ---
Author Organization [facility] Address [address] [place] [address] Care Team Providers Care Licensed Nurse Practitioner Name Role Phone Russ Suarez Primary Care Provider Unavailab le Source Comments You are receiving this document as you are listed as the primary care provider,follow-up provider, or the patient has been referred to you for consultation.This is in compliance with the Medicare and[facility] E[facility] Incentive [facility],which states Providers who transition [...] 90.7 kg (200 lb) 06/27/2016 8:36 AM FUSING FURNACE LOADER Height 170.2 cm (5' 7) 06/27/2016 8:36 AM FUSING FURNACE LOADER Body Mass Index 31.32 06/27/2016 8:36 AM FUSING FURNACE LOADER Plan of Treatment Health Maintenance Due Date [...] age to complete this topic Care Teams Licensed Nurse Practitioner Relationship Specialty Start Date End Date Russ Suarez PCP - General 09/29/10
--- OUTSIDE RECORDS SUMMARY | 2025-02-04 00:49 | XMS_ITS | Encounter Summary ---
Author Organization [facility] Address [address], [place] [address] Care Team Providers Care Trademark Affixer Name Role Phone Russ Suarez Primary Care [...] on filedocumented in this encounter Care Teams Trademark Affixer Relationship Specialty Start Date End Date Russ Suarez PCP - General 09/29/10 documented as of this encounter
[2025-02-04 00:50] VITALS: BP 149/94; PULSE 85; RESP 18; TEMP 36.2; O2SAT 96; BMI 30.7
--- NOTE | 2025-02-04 00:51 | ED.GENADULT ---
HPI - General Adult General Time Seen by Provider: 00:51 Date Seen: 02/04/25 Chief complaint: Back Injury/Pain Stated complaint: hernia, back pain Time Seen by Provider: 02/04/25 00:51 Source: patient Mode of arrival: ambulatory History of Present Illness HPI narrative: Russ is a 64 yo male who presents with a 2-3 day history of low back pain.? Patient reports pain is looking to his mid low back in midline region.? Patient describes the pain as a constant not in his back that seems to be worse with movement, worse with bending over.? 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 Patient denies any lower extremity weakness, paresthesias, no urinary or bowel incontinence/retention.? Patient does complain of some right groin discomfort and swelling over the past 2 days.? Patient reports he has a hernia and has not followed up.? Patient denies any dysuria, hematuria, testicular pain, testicular swelling.? Patient denies any other fever, chills, chest pain, shortness of breath, abdominal pain, nausea, vomiting.? No medications prior to arrival.? Patient reports he had a right upper extremity injury/pain and recently was on steroids and Aleve which has medications.? Approximately 2-3 days ago.? No other complaints. Related Data Home Medications ?Medication ?Instructions ?Recorded ?Confirmed No Known Home Medications 10/20/24 02/04/25 Allergies Allergy/AdvReac Type Severity Reaction Status Date / Time No Known Drug Allergies Allergy Verified 02/04/25 00:54 Review of Systems Narrative: Past medical history, past surgical history, medications, allergies, family history, and social history were reviewed with the patient. No additional pertinent items. A medically appropriate review of systems was performed with pertinent positives and negatives noted in HPI, all other systems negative. [facility] Social History Smoking Status: Current every day smoker Do you use any of these nicotine containing products: None Second hand tobacco smoke exposure: Yes How often do you have a drink containing alcohol: never AUDIT-C Alcohol total score: 0 Non-prescribed substance use: denies use Exam Narrative: Exam Narrative: General: Afebrile, in distress 2/2 to pain HEENT: Normocephalic, atraumatic, conjunctiva normal. MMM Neck: non-tender, supple Cardio: regular rate. regular rhythm Resp: Normal work of breathing, no respiratory distress, lungs clear bilaterally, no wheezing, rhonchi, rales Chest/Back: no visual signs of trauma, +midline lumbar TTP with no step offs, no deformities, no paraspinal TTP, no CVA tenderness Abdomen: soft, non distension, no tenderness, no peritoneal signs Neuro: alert and fully oriented. CN II-XII grossly intact. Grossly normal strength and sensation in all extremities. MSK: no deformities. Normal range of motion Integumentary/Skin: no rash visualized, normal color Psych: normal affect, normal behavior Const: Vital Signs, click to edit/add: Vital Signs - 24 hr 02/04/25 00:50 Temperature 97.2 F L Pulse Rate [Right Pulse Oximeter] 85 Respiratory Rate 18 Blood Pressure [Ri ght Upper Arm] 149/94 H Pulse Oximetry 96 Oxygen Delivery Me thod Room Air Course Vital Signs Vital signs: Initial Vital Signs Temperature 97.2 F L 02/04/25 00:50 Temperature Source Temporal Artery Scan 02/04/25 00:50 Pulse Rate 85 02/04/25 00:50 Respiratory Rate 18 02/04/25 00:50 Blood Pressure 149/94 H 02/04/25 00:50 Blood Pressure Mean 112 H 02/04/25 00:50 Blood Pressure Position Sitting 02/04/25 00:50 Pulse Oximetry 96 02/04/25 00:50 Oxygen Delivery Method Room Air 02/04/25 00:50 Vital Signs Temperature 97.2 F L 02/04/25 00:50 Pulse Rate 85 02/04/25 00:50 Respiratory Rate 18 02/04/25 00:50 Blood Pressure 149/94 H 02/04/25 00:50 Pulse Oximetry 96 02/04/25 00:50 Oxygen Delivery Method Room Air 02/04/25 00:50 Temperature 97.2 F L 02/04/25 00:50 Pulse Rate 85 02/04/25 00:50 Respiratory Rate 18 02/04/25 00:50 Blood Pressure 149/94 H 02/04/25 00:50 Pulse Oximetry 96 02/04/25 00:50 Oxygen Delivery Method Room Air 02/04/25 00:50 Medications Administered Medications: Discontinued Medications Generic Name Dose Route Start Last Admin Trade Name Freq PRN Reason Stop Dose Admin Hydromorphone HCl 0.5 mg 02/04/25 03:18 02/04/25 03:27 Hydromorphone 0.5 Mg/0.5 Ml Inj IVP 02/04/25 03:19 0.5 mg ONCE ONE Administration Ketorolac Tromethamine 15 mg 02/04/25 03:18 02/04/25 03:27 Ketorolac 15 Mg/Ml Inj IVP 02/04/25 03:19 15 mg ONCE ONE Administration Lidocaine 1 patch 02/04/25 03:18 02/04/25 03:27 Lidocaine 5% Patch TRANSDERMA 02/04/25 03:19 1 patch ONCE ONE Administration Protocol Medical Decision Making MDM Narrative Medical decision making narrative: Russ is a 64-year-old male who presents to emergency department for evaluation of low back pain for the past 2-3 days. Upon arrival patient is nontoxic appearing, afebrile, in distress secondary to pain. ?Patient hemodynamically stable, slightly hypertensive upon arrival with blood pressure 149/94, otherwise vital signs within normal limits. Differential diagnosis includes but is not limited to lumbar strain versus musculoskeletal versus herniated disc versus less likely fracture versus malignancy.? Patient with no red flags, no focal neurological deficits.? Patient was treated with lidocaine patch, IV Toradol, IV Dilaudid in the emergency department.? Comprehensive labs, CT imaging was performed.? Comprehensive labs unremarkable with no leukocytosis white blood cell count 9.6, hemoglobin 13.8, no acute metabolic or electrolyte abnormality, no transaminitis.? I personally reviewed interpreted CT scan of the abdomen pelvis and lumbar spine and discussed results with patient which demonstrates acute sigmoid diverticulitis with no evidence of perforation or abscess. Patient with no significant left lower abdominal tenderness to palpation, only complains of back discomfort however giving CT imaging, will treat with antibiotics. Incidental findings of 5 mm right middle lobe lung nodule - discussed with patient and recommend outpatient follow-up for repeat imaging in 12 months. Indirect fat and fluid containing right inguinal hernia which patient was aware of. Encouraged close outpatient follow-up with General surgery. Normal appendix. Lumbar spine with no acute osseous abnormality, multilevel spondylosis and degenerative disc disease multifocal canal stenosis at L4-L5. Recommend conservative management with pain control, physical therapy, and close outpatient follow-up. If no improvement in symptoms would consider MRI and for 6 weeks. On re-evaluation patient resting comfortably, reports some improvement of symptoms after medications in the emergency department. I discussed results with patient. Patient feels comfortable discharge home, referrals given for outpatient follow-up with primary care provider as well as General surgery. Plan for discharge with continued supportive care, Tylenol, ibuprofen, Percocet as needed for severe pain. Will discharge patient with Augmentin for diverticulitis however clinically patient denies any fever, left lower quadrant abdominal pain. Recommend close outpatient follow-up and strict return precautions discussed if high fever, severe abdominal pain, persistent vomiting, lower extremity weakness/paresthesias, urinary or bowel retention/incontinence or any worsening symptoms. Patient understands and agrees the plan. Medical Records Medical records reviewed: Yes I reviewed the patient's medical records Lab Data Lab results reviewed: Yes I reviewed the patient's lab results Labs: Lab Results 02/04/25 Range/Units 01:28 WBC 9.63 (4.50-11.00) K/uL RBC 4.54 (4.30-5.90) m/uL Hgb 13.8 (13.5-17.5) gm/dL Hct 41.8 (37.0-53.0) % MCV 92 (80-100) fL MCH 30 (26-34) pg MCHC 33 (32-36) gm/dL Plt Count 315 (140-440) K/uL Neut % (Auto) 62.6 (42.0-72.0) % Lymph % (Auto) 22.8 (20-44) % [place] % (Auto) 9.7 (0.0-11.0) % Eos % (Auto) 3.9 (0.0-7.0) % Baso % (Auto) 0.5 (0.0-3.0) % Neut # (Auto) 6.00 (1.7-7.0) K/uL Lymph # (Auto) 2.20 (0.90-2.90) K/uL [place] # (Auto) 0.90 (0.00-0.90) K/UL Eos # (Auto) 0.40 (0.00-0.50) K/uL Baso # (Auto) 0.00 (0.00-0.30) K/uL Sodium 138 (135-149) mmol/L Potassium 4.1 (3.6-5.1) mmol/L Chloride 106 (96-114) mmol/L Carbon Dioxide 27 (20-32) mmol/L Anion Gap 5 L (7-15) mEq/L BUN 21 (7-30) mg/dL Creatinine 1.1 (0.5-1.5) mg/dL Estimated Creat Clear 65.10 Estimated GFR 76 ml/min Glucose 90 (60-115) mg/dL Calcium 9.5 (8.4-10.6) mg/dL Total Bilirubin 0.3 (0.1-1.5) mg/dL AST 26 (12-35) U/L ALT 20 (4-50) U/L Alkaline Phosphatase 90 (40-150) U/L Total Protein 7.1 (6.0-8.3) g/dL Albumin 3.8 (3.3-5.0) g/dL Discharge Plan Discharge Clinical Impression: Back pain, Diverticulitis, Hernia, inguinal, right Patient Disposition: Home, Self-Care Condition: Stable Instructions: Diverticulitis (ED), Acute Low Back Pain (ED), Diverticulitis Diet (ED) Additional Instructions: Please follow-up with your primary care provider or called the clinic to schedule a follow-up appointment in the next 3-5 days. [phone]. Please also call to schedule a follow-up appointment with General surgery regarding your hernia. [phone]. Please alternate taking ibuprofen 600 mg and Tylenol 1000 mg every 6 hours as needed for pain. If you alternate these medications you should be taking something every 3 hours. You may apply lidocaine patch to your low back (keep patch on for 12 hours and then off for 12 hours). Please do back exercises/physical therapy as tolerated. Please take percocet every 6 hours as needed for severe pain. (please be cautious at this does have Tylenol in it so do not take Tylenol at the same time.) Please take antibiotics as directed for diverticulitis. Please follow-up with your primary care provider regarding incidental findings on CT scan including a 5 mm right lung nodule. Recommend follow-up CT imaging in 12 months. Please return to the emergency department if you develop high fever, severe abdominal pain, persistent vomiting, severe back pain, urinary/bowel incontinence or retention, lower extremity weakness, tingling, numbness, or any worsening symptoms. It was a pleasure taking care of you today. We hope you feel better soon. Prescriptions: No Action No Known Home Medications Follow Up/Referrals: Provider,Not a Local [Primary Care Provider, Family Practice] Stand Alone Forms: [facility] Info Instructions
[2025-02-04] MEDS: LIDOCAINE 5% PATCH 1 PATCH TRANSDERMA (03:27)
[2025-02-04 03:32] LABS: Anion Gap 5 mEq/L (7-15); Carbon Dioxide* 27 mmol/L (20-32); Chloride* 106 mmol/L (96-114); Potassium* 4.1 mmol/L (3.6-5.1); Sodium* 138 mmol/L (135-149)
[2025-02-04 03:33] LABS: Alanine Aminotransferase* 20 U/L (4-50); Albumin* 3.8 g/dL (3.3-5.0); Alkaline Phosphatase* 90 U/L (40-150); Aspartate Amino Transferase* 26 U/L (12-35); Bilirubin Total* 0.3 mg/dL (0.1-1.5); Blood Urea Nitrogen* 21 mg/dL (7-30); Calcium* 9.5 mg/dL (8.4-10.6); Creatinine* 1.1 mg/dL (0.5-1.5); Est. Creatinine Clearance* 65.10; Estimated Glomerular Filt Rate 76 ml/min; Glucose* 90 mg/dL (60-115); Total Protein* 7.1 g/dL (6.0-8.3)
[2025-02-04 03:34] LABS: Hematocrit 41.8 % (37.0-53.0); Hemoglobin* 13.8 gm/dL (13.5-17.5); Mean Corpuscular Volume 92 fL (80-100); Red Blood Count 4.54 m/uL (4.30-5.90); White Blood Count* 9.63 K/uL (4.50-11.00)
[2025-02-04 03:35] LABS: Lymphocytes Absolute Auto 2.20 K/uL (0.90-2.90); Mean Corpuscular HGB Conc 33 gm/dL (32-36); Mean Corpuscular Hemoglobin 30 pg (26-34); Slide Review Reflex No
== END 2025-02-04 05:10 | disposition home or self-care (01) ==
PROVIDERS: Emergency Provider Emergency Medicine
DX: M54.50 Low back pain, unspecified (principal); R10.2 Pelvic and perineal pain; K57.92 Diverticulitis of intestine, part unspecified, without perforation or abscess without bleeding; K40.90 Unilateral inguinal hernia, without obstruction or gangrene, not specified as recurrent
CPT/HCPCS: 36415; 72131; 74177; 80053; 82565; 85025; 96374; 96375; 99284; 99285; A9270; J1171; J1885; Q9967